=== PATIENT | female | born 1985 | race African-American/Black ===

== ENCOUNTER 2021-01-22 08:20 | Emergency (ER) | payer OTHER ==
[~2021-01-22] VITALS: Ht 152.4 cm; Wt 95.3 kg
[2021-01-22 08:24] VITALS: BP 136/109
--- NOTE | 2021-01-22 08:28 | NUR ---
PT BIBA TO BED 12
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
--- NOTE | 2021-01-22 08:39 | NUR ---
Dr. Ernst examining patient.
[2021-01-22] MEDS ORDERED: ACETAMINOPHEN 325 MG TAB PO ONE (08:50)
[2021-01-22] MEDS ORDERED: IBUPROFEN 600 MG TAB PO ONE (08:50)
--- NOTE | 2021-01-22 08:55 | NUR ---
SPOKE WITH [facility] [employer] AND WAS GIVEN REPORT #[id number]
--- NOTE | 2021-01-22 09:00 | NUR ---
RAD AT BEDSIDE
--- NOTE | 2021-01-22 09:23 | NUR ---
UA COLLECTED, DIPPED/PREG
[2021-01-22] MEDS ORDERED: IBUP-2213 PO (10:05)
--- NOTE | 2021-01-22 10:08 | NUR ---
PT STILL REPORTS 9/10 BACK PAIN, DENIES NEED FOR FURTHER PAIN INTERVENTION AT THIS TIME.
[2021-01-22 10:15] VITALS: BP 103/67
--- NOTE | 2021-01-22 10:15 | NUR ---
Patient discharged with v/s stable. Written and verbal after care instructions given and explained. Patient verbalized understanding. Ambulatory with steady gait. All questions addressed prior to discharge. Advised to follow up with PMD.
== END 2021-01-22 10:15 | disposition home or self-care (01) ==
LOC: MED 08:20
DX: R07.9 Chest pain, unspecified (principal); M54.2 Cervicalgia; M54.5 Low back pain; V98.8XXA Other specified transport accidents, initial encounter; Y93.89 Activity, other specified; Y92.89 Other specified places as the place of occurrence of the external cause; Y99.8 Other external cause status
CPT/HCPCS: 71045; 81002; 81025; 99284